=== PATIENT | female | born 1960 | race Caucasian/White ===

== ENCOUNTER → 2017-05-13 | Outpatient (CLI) | payer OTHER | LOC: BMCIMAGING 11:10 | PROVIDERS: ATTEND Internal Medicine | DX: Z12.31 Encounter for screening mammogram for malignant neoplasm of breast (principal) | CPT/HCPCS: G0202 ==

== ENCOUNTER → 2018-02-20 | Outpatient (CLI) | payer OTHER | LOC: FIMAGING 07:13 | PROVIDERS: ATTEND Radiology Diagnostic Radiology | DX: I83.892 Varicose veins of left lower extremity with other complications (principal); I83.812 Varicose veins of left lower extremity with pain; S85.30 Unspecified injury of greater saphenous vein at lower leg level; I82.592 Chronic embolism and thrombosis of other specified deep vein of left lower extremity; V89.2XXS Person injured in unspecified motor-vehicle accident, traffic, sequela ==

== ENCOUNTER → 2018-03-08 | Outpatient (CLI) | payer OTHER | LOC: FIMAGING 11:23 | PROVIDERS: ATTEND Orthopaedic Surgery | DX: S83.232A Complex tear of medial meniscus, current injury, left knee, initial encounter (principal); M17.0 Bilateral primary osteoarthritis of knee; M24.10 Other articular cartilage disorders, unspecified site ==

== ENCOUNTER → 2018-03-20 | Outpatient (CLI) | payer OTHER ==
[~2018-03-20] MED LIST: IOPAMIDOL (ISOVUE-370) 150 ML BTL IV ONE
== END ==
LOC: CIMAGING 07:10
PROVIDERS: ATTEND Radiology Diagnostic Radiology
DX: R22.42 Localized swelling, mass and lump, left lower limb (principal); K80.20 Calculus of gallbladder without cholecystitis without obstruction
CPT/HCPCS: 72191-PO; Q9967

== ENCOUNTER 2018-04-16 07:29 | Day surgery (SDC) | payer OTHER ==
[2018-04-16] MEDS ORDERED: MIDAZOLAM 2 MG/2 ML VIAL IVP PRN (07:41)
[2018-04-16] MEDS ORDERED: ONDANSETRON 4 MG/2 ML VIAL IVP ONE (07:41)
[2018-04-16] MEDS ORDERED: NS 1,000 ML IV ONE (07:41)
[2018-04-16] MEDS ORDERED: FLUMAZENIL 0.5 MG/5 ML MDV IVP PRN (07:41)
[2018-04-16] MEDS ORDERED: fentaNYL 100 MCG/2 ML INJ IVP PRN (07:41)
[2018-04-16] MEDS ORDERED: NALOXONE HCL 0.4 MG/ML INJ IVP PRN (07:41)
[2018-04-16] MEDS ORDERED: ceFAZolin 2 GM/DEXTROSE 100 ML IV ONE (07:41)
[2018-04-16] MEDS ORDERED: NALOXONE HCL 0.4 MG/ML INJ ONE (08:16)
[2018-04-16] MEDS ORDERED: FLUMAZENIL 0.5 MG/5 ML MDV IVP ONE (08:16)
[2018-04-16] MEDS ORDERED: MIDAZOLAM 2 MG/2 ML VIAL ONE ×2 (08:17→09:55)
[2018-04-16] MEDS ORDERED: CEFAZOLIN 2 GM/DEXTROSE/100 ML BAG IV ONE (08:17)
[2018-04-16] MEDS ORDERED: fentaNYL 100 MCG/2 ML INJ ONE ×2 (08:17→09:55)
[2018-04-16] MEDS ORDERED: SODIUM TETRADECYL SULFATE 3% 2 ML VIAL IV ONE (08:18)
[2018-04-16] MEDS ORDERED: LIDO/EPI 1% **for epidural** 30 ML SDV ONE (08:19)
--- NOTE | 2018-04-16 10:13 | PDPROPOC ---
Sedation Plan of Care Sedation Plan of Care: vital signs stable, mental status noted, patient educated of risks, benefits, alternatives, patient can tolerate sedation ASA Classification: ASA 1 Planned drugs: fentanyl, midazolam Mallampati Score: Class 2 Mallampati Reference Image: Patient passed 3-3-2 rule?: Yes
--- NOTE | 2018-04-16 10:15 | PDGENHP ---
History & Physical Chief Complaint: LLE VARICOSE VEINS History of Present Illness: PAIN AND SWELLING. Pertinent Past, Social, Family History: RT HIP REPLACEMENT, LT KIDNEY STONES, LT HIP ARTHROPLASTY. Relevant Physical Exam: ROPEY VARICOSE VEINS LLE MAPPED OUT. Cardiorespiratory Assessment: RRR,CTA
[2018-04-16] MEDS ORDERED: ONDANSETRON DISINTEGRATING 4 MG TAB PO PRN (10:16)
[2018-04-16] MEDS ORDERED: IBUPROFEN 200 MG TAB PO ONE ×2 (10:16→13:06)
[2018-04-16] MEDS ORDERED: HYDROCODONE/APAP 5/325 TAB PO PRN (10:16)
[2018-04-16] MEDS ORDERED: ONDANSETRON 4 MG/2 ML VIAL IVP PRN (10:16)
--- NOTE | 2018-04-16 10:18 | PDRADPN ---
Radiology Procedure Note Date of Procedure: 04/16/18 Radiologist: Aniyah Chamberlain Anesthesia: IV Sedation Pre-op Diagnosis: LLE VARICOSE VEINS Post-op Diagnosis: SAME Indication: PAIN AND SWELLING Procedure: LASER, PHLEBECTOMY, SCHLEROTHERAPY Inf/Abcess present in the surg proc area at time of surgery?: No
[2018-04-16] MEDS ORDERED: NS 1,000 ML IV SCH (10:30)
[2018-04-16 13:31] VITALS: BP 119/79
== END 2018-04-16 13:32 | disposition home or self-care (01) ==
LOC: FIMAGING 07:29
PROVIDERS: ATTEND Radiology Diagnostic Radiology
PROC: 065Q3ZZ Destruction of Left Saphenous Vein, Percutaneous Approach (ICD-10-PCS; 2018-04-16)
PROC: 3E033TZ Introduction of Destructive Agent into Peripheral Vein, Percutaneous Approach (ICD-10-PCS; 2018-04-16)
PROC: 065Q3ZZ Destruction of Left Saphenous Vein, Percutaneous Approach (ICD-10-PCS; principal; 2018-04-16 10:25)
DX: I83.812 Varicose veins of left lower extremity with pain (principal)
CPT/HCPCS: J0690; J2250; J2310; J3010

== ENCOUNTER 2018-05-07 05:45 | Day surgery (SDC) | payer OTHER ==
--- NOTE | 2018-05-05 14:59 | GHP ---
DATE OF ADMISSION: 05/07/2018 ADMISSION DIAGNOSIS: Medial meniscal tear, left knee. PLANNED PROCEDURE: Arthroscopic partial medial meniscectomy, left. HPI: The patient is a 57-year-old female who has had a twisting injury to her knee with ongoing knee pain. It continues to be painful and stiff. We obtained an MRI which showed a complex medial menis cus tear, as well as chondral thinning in that medial side, and decision was made to proceed with a p artial medial meniscectomy. PRIOR MEDICAL HISTORY: Hypertension. PRIOR SURGICAL HISTORY: Renal surgery. She has had a couple orthopedic surgeries. MEDICATIONS: Adderall, enalapril. ALLERGIES: No known drug allergies. SOCIAL HISTORY: Does not smoke. Occasional alcohol use. 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 Lives here in town. She is active in bicycling, skiing, hiking, and walk ing. REVIEW OF SYSTEMS: No shortness of breath or chest pain. Otherwise, review of systems is unremarkab le. PHYSICAL EXAM: VITAL SIGNS: Healthy-appearing 57-year-old female. She is 5 feet 3 inches tall, devan ghs 135 pounds. Blood pressure is 108/68, heart rate 55, respiratory rate 14 on room air. GENERAL: Alert and oriented x3. HEENT: Normocephalic, atraumatic. Extraocular muscles intact. NECK: Supp le. There is no lymphadenopathy. No JVD. CHEST: Clear to auscultation. CARDIOVASCULAR: Regular rate and rhythm. ABDOMEN: Soft, nontender, nondistended. There is no hepatosplenomegaly. EXTREMIT IES: Left knee shows no effusion. She is tender, worse on the medial than the lateral side. She montero s full extension, flexes to 130 degrees. Knee is stable to varus and valgus stress testing. 1+ Lach man, firm endpoint, negative posterior drawer. Calf is soft. She does have a positive Amanda sign on that medial joint line in 60 degrees of extension. IMAGING: MRI from [facility] dated 03/08/2018, is reviewed. Does show some thinning o f the cartilage, grade 3, almost grade 4 in the medial compartment. There is a complex medial menisc al tear. There was a loose fragment near the root and in the notch. There is some degenerative sign al in the lateral meniscus. I do not see definitive tear. Mild grade 1 changes there. Mild grade 1 chondral changes in the patellofemoral compartment. 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 PLAN: The patient really has been struggling with this knee. I think a lot of the symptoms are refe rable to the mechanical symptoms that flipped fragment and complex tear. My recommendation is to do a partial meniscectomy, remove the loose body. We may need to do some viscosupplementation injection s postoperatively. Preoperative paperwork was completed. Risks and benefits, including infection, b lood clots, continued pain, postoperatively were all discussed due to the underlying medial compartme nt arthritis. She understands this, wished to proceed. We will plan on surgery Saturday [facility]. /[id number]/MODL
[2018-05-07] MEDS ORDERED: ceFAZolin 2 GM/DEXTROSE 100 ML IV ONE (06:00)
[2018-05-07] MEDS ORDERED: LR 1,000 ML IV ONE (06:01)
[2018-05-07] MEDS ORDERED: CEFAZOLIN 2 GM/DEXTROSE/100 ML BAG IV ONE (06:06)
[2018-05-07] MEDS ORDERED: LIDOCAINE 1% 2 ML INJ ONE (06:06)
[2018-05-07] MEDS ORDERED: EPINEPHrine 1 MG/ML INJ ONE (06:36)
[2018-05-07] MEDS ORDERED: BUPIVACAINE/EPI 0.5% 30 ML SDV ONE (06:36)
[2018-05-07] MEDS ORDERED: LIDO/EPI 1% **for epidural** 30 ML SDV ONE (06:36)
--- NOTE | 2018-05-07 06:43 | PDHPUP ---
History & Physical Update H&P update statement: This history and physical update is based on an assessment of the patient which was completed after admission or registration (within 24 hours), but prior to the surgery/procedure. H&P update: H&P reviewed & patient examined, no change in patient's condition since H&P completed
--- NOTE | 2018-05-07 07:00 | PDANEPAE ---
ANE History of Present Illness Meniscus tear ANE Past Medical History - Cardiovascular History Hx Hypertension: Yes Hx Arrhythmias: No Hx Chest Pain: No Hx Coronary Artery / Peripheral Vascular Disease: No Hx CHF / Valvular Disease: No Hx Palpitations: No Cardiovascular History Comment: mother-aortic replacement age 67. father- cardiac stents age 77 - Pulmonary History Hx COPD: No Hx Asthma/Reactive Airway Disease: No Hx Recent Upper Respiratory Infection: No Hx Oxygen in Use at Home: No Hx Sleep Apnea: No Sleep Apnea Screening Result - Last Documented: Negative - Neurologic History Hx Cerebrovascular Accident: No Hx Seizures: No Hx Dementia: No - Endocrine History Hx Diabetes: No - Renal History Hx Renal Disorders: Yes Renal History Comment: L kidney inf. with pyeloplasty 2005. - Liver History Hx Hepatic Disorders: No - Neurological & Psychiatric Hx Hx Neurological and Psychiatric Disorders: No - Cancer History Hx Cancer: No - Congenital Disorder History Hx Congenital Disorders: No - GI History Hx Gastrointestinal Disorders: No - Other Health History Other Health History: scalp psoriasis. arthritis in joints. wears glasses/ contacts - Chronic Pain History Chronic Pain: Yes (left knee) - Surgical History Prior Surgeries: 04/16/18 laser ablation of saphenous vein with Mao. L kidney pyeloplasty 2006. L hip plasty 2004. C1C2 surg,exp. lap, bilateral ankle fx post AA 1979 ANE Review of Systems Review of Systems: - Exercise capacity METS (RN): 4 METS ANE Patient History - Allergies Allergies/Adverse Reactions: No Known Allergies Allergy (Verified 05/02/18 11:47) - Home Medications Home medications: home medication list seen and reviewed Home Medications: Enalapril Maleate [Vasotec 2.5 MG (RX)] DAILY 08/03/13 [Last Taken 05/06/18] Ibuprofen [Motrin] PRN PRN 08/06/13 [Last Taken 04/09/18] - NPO status NPO Since - Liquids (Date): 05/06/18 NPO Since - Liquids (Time): 22:30 NPO Since - Solids (Date): 05/06/18 NPO Since - Solids (Time): 18:00 - Anes Hx Anes Hx: no prior problems - Smoking Hx Smoking Status: Never smoked - Family Anes Hx Family Hx Anesthesia Complications: mother-difficulty waking up ANE Labs/Vital Signs - Vital Signs Blood Pressure: 134/94 Heart Rate: 73 Respiratory Rate: 16 O2 Sat (%): 98 Height: 160.02 cm Weight: 58.967 kg ANE Physical Exam - Airway Neck exam: FROM Mallampati Score: Class 1 Mouth exam: normal dental/mouth exam - Pulmonary Pulmonary: no respiratory distress - Cardiovascular Cardiovascular: regular rate and rhythym - ASA Status ASA Status: I ANE Anesthesia Plan Anesthesia Plan: GA w LMA
[2018-05-07] MEDS ORDERED: MIDAZOLAM 2 MG/2 ML VIAL IVP ONE (07:03)
[2018-05-07] MEDS ORDERED: LIDOCAINE 2% 5 ML SDV ONE (07:11)
[2018-05-07] MEDS ORDERED: GLYCOPYRROLATE 0.2 MG/1 ML VIAL ONE (07:11)
[2018-05-07] MEDS ORDERED: fentaNYL 100 MCG/2 ML INJ ONE (07:12)
[2018-05-07] MEDS ORDERED: PROPOFOL 200 MG/20 ML VIAL ONE (07:12)
[2018-05-07] MEDS ORDERED: ONDANSETRON 4 MG/2 ML VIAL ONE (07:42)
[2018-05-07] MEDS ORDERED: DEXAMETHASONE 4 MG/ML VIAL ONE (07:42)
[2018-05-07] MEDS ORDERED: NALOXONE HCL 0.4 MG/ML INJ IVP PRN (07:52)
[2018-05-07] MEDS ORDERED: HYDROmorphONE/DILAUDID 2 MG/ML INJ IVP PRN (07:52)
[2018-05-07] MEDS ORDERED: fentaNYL 100 MCG/2 ML INJ IVP PRN (07:52)
[2018-05-07] MEDS ORDERED: PROMETHAZINE HCL 25 MG/ML INJ IVP PRN (07:52)
[2018-05-07] MEDS ORDERED: ONDANSETRON 4 MG/2 ML VIAL IVP PRN (07:52)
--- NOTE | 2018-05-07 08:07 | POSTANESTH ---
Post Anesthetic Evaluation Cardiovascular Status: Similar to Pre-Op Cond Respiratory Status: Similar to Pre-op Cond. Level of Consciousness/Mental Status: Alert and Oriented, Mildly Sleepy, Arousable Pain Control: Adequate, Prn Tx Ordered Nausea/Vomiting Control: Adequate, Prn Tx Ordered Complications Possibly Related to Anesthesia: None Noted
--- NOTE | 2018-05-07 08:09 | POSTOPPROG ---
Post Op Note Date of Operation: 05/07/18 Surgeon: Brando Clements [employer] Operator: Jeremiah Ag Anesthesia: GET(General Endotracheal) Pre-op Diagnosis: medial meniscus tear Post-op Diagnosis: same Procedure: 1. partial medial menisectomy 2. PF chondroplasty Findings: complex tear medial meniscus Inf/Abcess present in the surg proc area at time of surgery?: No EBL: Minimal Complications: none
--- NOTE | 2018-05-07 08:36 | GOP ---
DATE OF OPERATION: 05/07/2018 SURGEON: Brando Clements MD MEAL ROOM HAND: Jeremiah Ag. ANESTHESIA: General. ANESTHESIOLOGIST: Dr. Vuong. PREOPERATIVE DIAGNOSIS: Left knee medial meniscal tear. POSTOPERATIVE DIAGNOSIS: Left knee medial meniscal tear. PROCEDURE PERFORMED: 1. Arthroscopic partial medial meniscectomy. 2. Patellofemoral chondroplasty. 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 Failed to improve with conservative management. MRI was obtained, whic h showed a complex tear of the medial meniscus, as well as some cartilage thinning in the medial comp artment and some patellofemoral chondromalacia. Decision was made to proceed with a partial medial m eniscectomy and patellofemoral chondroplasty. DESCRIPTION OF PROCEDURE: After appropriate informed consent was obtained, the patient was taken to the operating room, placed supine on the operating table. Time-out was performed. Patient was ident ified. Correct site was identified. She received 2 g of Ancef preoperatively. In the preoperative area, she had been scrubbed with chlorhexidine and was developing some itchiness to this and she had recalled that she had a previous reaction to that with the hip, so we prepped in the OR with Betadine scrub and paint on the left knee. It was then prepped and draped in the usual sterile fashion. Rig ht leg was placed in a well-padded well leg zuniga. All bony prominences were well padded. I instil led 5 cc of 1% lidocaine with epinephrine to both the anteromedial and anterolateral portals, made a small eric incision and introduced the camera through a standard lateral portal. Patellofemoral comp artment showed some mild grade 1 changes in the trochlear groove. There was an area of grade 2 thinn ing in the central pole of the patella. Medial and lateral gutters were free of debris. I repositio carla the camera, obtained a standard anteromedial portal under direct visualization. She had a comple x tear in the midbody of the medial meniscus with some areas of full-thickness cartilage loss both on the tibia and the femur. I debrided back the torn meniscus with a shaver. The posterior aspect of the meniscus looked in good shape, as did the anterior aspect. Looking through notch, ACL and PCL we re stable and intact. The lateral meniscus was without injury. There was some mild free edge frayin g but no injuries to the articular cartilage otherwise. I repositioned the camera in the patellofemo ral compartment, performed a gentle patellofemoral chondroplasty. Instruments were withdrawn. Kamille l incisions were closed with 3-0 nylon. I instilled 30 mL of 0.5% Marcaine with epinephrine in the k nee. Sterile dressing was applied. Patient was awakened from anesthesia, taken to the recovery room in satisfactory condition. No immediate intraoperative complications. COMPLICATIONS: None. DRAINS: None. /[id number]/MODL
[2018-05-07 11:00] VITALS: BP 129/87
== END 2018-05-07 09:45 | disposition home or self-care (01) ==
LOC: FSGY 05:45
PROVIDERS: ATTEND Orthopaedic Surgery
PROC: 0SBD4ZZ Excision of Left Knee Joint, Percutaneous Endoscopic Approach (ICD-10-PCS; principal; 2018-05-07 07:15)
DX: S83.232A Complex tear of medial meniscus, current injury, left knee, initial encounter (principal); M17.12 Unilateral primary osteoarthritis, left knee; X50.9XXA Other and unspecified overexertion or strenuous movements or postures, initial encounter; I10 Essential (primary) hypertension
CPT/HCPCS: J0171; J0690; J1100; J2250; J2405; J2704; J3010

== ENCOUNTER → 2018-05-22 | Outpatient (CLI) | payer OTHER | LOC: BRMIMAGING 08:10 | PROVIDERS: ATTEND Internal Medicine | DX: Z12.31 Encounter for screening mammogram for malignant neoplasm of breast (principal); Z13.820 Encounter for screening for osteoporosis; M85.89 Other specified disorders of bone density and structure, multiple sites; Z96.643 Presence of artificial hip joint, bilateral ==

== ENCOUNTER → 2018-05-30 | Outpatient (CLI) | payer OTHER | LOC: BRMIMAGING 09:51 | PROVIDERS: ATTEND Internal Medicine | DX: R92.8 Other abnormal and inconclusive findings on diagnostic imaging of breast (principal) ==

== ENCOUNTER → 2018-08-07 | Outpatient (CLI) | payer OTHER | LOC: FIMAGING 12:56 | PROVIDERS: ATTEND Radiology Diagnostic Radiology | DX: Z09 Encounter for follow-up examination after completed treatment for conditions other than malignant neoplasm (principal); Z86.79 Personal history of other diseases of the circulatory system; I82.819 Embolism and thrombosis of superficial veins of unspecified lower extremity ==